=== PATIENT | female | born 1980 | race Caucasian/White ===

== ENCOUNTER 2019-09-28 02:58 | Inpatient (IN) | payer OTHER ==
[~2019-09-28] VITALS: Ht 152.4 cm; Wt 48.4 kg
[~2019-09-28 02:58] MED LIST: ATIVAN 0.50.5 MG/TAB PO; DILANTIN 100MG100 MG PO; DILANTIN 50MG C50 MG PO; FIORICET 325 MG1 TA1 PO; FOLIC ACID 11 MG/TA1 PO; PERCOCET 325 MG1 TA2 PO; PRENATAL1 TA1 PO; PROVENTIL0.09 MG/A1 IH; TYLENOL 325MG325 MG PO; TYLENOL 500MG500 MG PO; ULTRAM 50MG TAB50 MG PO; VALIUM 5MG T5 MG/TAB; XANAX 1MG1 MG
[2019-09-28 04:43] VITALS: BP 140/94; PULSE 92; TEMP 97.9
--- NOTE | 2019-09-28 05:00 | NUR ---
PT ARRIVED IN UNIT VIA STRETCHER ESORTED BY EMS. PT VERY LETHARGIC AND WAKES UP BRIEFTLY BUT FALLS BACK TO SLEEP RIGHT AWAY. INITIAL VS STABLE AND ALL WNL. SEIZURE PAD PLACED, BED ALARM ON.
[2019-09-28 06:14] LABS: BASO # 0.1 (0.0-0.2); BASO % 0.8 % (0.0-2.0); EOS # 0.3 (0.0-0.7); EOS % 3.5 % (0-4.0); GRAN # 5.2 (1.4-6.5); GRAN % 60.7 % (42.2-75.2); HEMATOCRIT 33.2 % (37.0-47.0); HEMOGLOBIN 10.6 g/dl (12.5-16.0); LYMPH % 22.9 % (20.0-51.0); MEAN CELL VOLUME 94 fl (80.0-100.0); MEAN CORPUSCULAR HEMOGLOBIN 30 pg (27.0-31.0); MEAN CORPUSCULAR HGB CONC 32 g/dl (33.0-37.0); MEAN PLATELET VOLUME 9.4 fl (7.4-10.4); MONO % 11.8 % (1.7-9.3); PLATELET COUNT 348 K/mm3 (130-400); RED BLOOD COUNT 3.53 M/mm3 (4.10-5.30); REDCELL DISTRIBUTION WIDTH-CV 14.9 % (11.5-14.5)
[2019-09-28] MEDS ORDERED: FLEXERIL 1010 MG/TAB PO (06:19)
[2019-09-28] MEDS ORDERED: KEPPRA1000 MG PO (06:20)
[2019-09-28] MEDS ORDERED: REMERON 15M15 MG/TA1 PO (06:21)
[2019-09-28] MEDS ORDERED: MULTI VITAMINS1 TAB PO (06:22)
--- NOTE | 2019-09-28 06:24 | NUR ---
ADMISSION DATA UNABLE TO COMPLETE FULLY PT LETHARGIC, DATA GATHERED FROM AND DISCHARGED PAPERS FROM [facility]. INFECTIOUS DISEASE SCREENING, SUICIDE RISK AND FAMILY HISTORY NOT DONE. WILL RELAY TO ONCOMING DAY SHIFT RN.
[2019-09-28 06:28] LABS: CALCIUM 9.5 mg/dL (8.4-10.2); CREATININE, serum 0.43 (0.52-1.25); POTASSIUM 4.1 mmol/L (3.4-5.0)
--- NOTE | 2019-09-28 06:40 | NUR ---
0300 - RECEIVED REPORT FROM DASH BENITEZ OF [facility]. 0430 - PT ARRIVED IN UNIT ESCORTED BY EMS. PT LETHARGIC, VSS. 0505 - ASHLY NURSE CALLED AND UPDATED BY THIS RN REGARDING PT. 0520 - THIS RN CALLED PT'S EL[facility]IRA AND MADE AWARE OF PT'S ARRIVAL AT THE FACILITY. PT IS ALSO A FULL CODE CONFIRMED BY . 0530 - DR. ANGEL NOTIFIED OT PT'S ARRIVAL, ORDERS GIVEN. SEE ORDERS FOR DETAILS. NO DVT PROPHYLAXIS ORDERD AT THIS TIME BUT WAS MENTIONED TO MD WELL.
--- NOTE | 2019-09-28 07:32 | NUR ---
Report received from Keesha BOWLING and care resumed.
[2019-09-28 08:00] VITALS: BP 94/74; PULSE 84
--- NOTE | 2019-09-28 10:03 | NUR ---
Dr Hylton in to see pt at this time.
[2019-09-28 12:00] VITALS: BP 95/56; PULSE 85
--- NOTE | 2019-09-28 13:09 | NUR ---
[employer] Sales Engineer contacted patient's , Nick (ph#[phone]) to discuss discharge planning as patient is not alert and oriented at this time. Nick reports he and patient live in [place]. Nick states their son, Gato and aunt, Andressa also live with them. Patient sees Dr. Membreno at [facility] in [place] for primary care. Patient also obtains medications from [facility]. Patient does not have Advance Directives. Nick reports patient sometimes uses a walker. Nick reports normally patient is independent but due to her addiction, she sometimes needs assistance with ADLS. Nick reports that sometimes he and Aunt Andressa sometimes even have to carry her. Nick reports patient has a significant family history of mental health and substance abuse. Nick states that patient has struggled with addiction in the past but just found out that she is struggling again. Nick states patient hides her "stash" around the home. Nick states patient uses "illegal substances and opiods" and that they believe they found an extacy pill in the home after patient was admitted to hospital. Nick strongly feels patient needs rehab. JULIAN advised when patient is alert and oriented, resources and services can be reviewed with patient. Nick states patient needs to be "forced" to go to rehab and asked if patient could see psychiatry while she is in the hospital. JULIAN collaborated with RNJeanie about possible psych consult. JULIAN will continue to follow.
[2019-09-28 16:00] VITALS: BP 99/66; PULSE 60
--- NOTE | 2019-09-28 16:20 | NUR ---
Pt awake and talking at this time. Stated she is in the hospital but thought it was [facility] which is where she was originally taken. Denies any concerns at this time. Will continue to follow.
--- NOTE | 2019-09-28 18:58 | NUR ---
Report given to Gianni BOWLING and care transfered.
--- NOTE | 2019-09-28 19:05 | NUR ---
RECEIVED REPORT FROM DASH MENG. PT SLEEPING IN BED ON RA. VSS. CALL LIGHT WITHIN REACH.
[2019-09-28 20:00] VITALS: BP 98/65; PULSE 69; TEMP 98.5
--- NOTE | 2019-09-28 20:42 | NUR ---
REPORT GIVEN TO DASH ADAM ON MEDICAL FLOOR FOR TRASNFER TO 354.
--- NOTE | 2019-09-28 20:50 | NUR ---
To room 354 from ICU via wheelchair. Oriented to room/policy. Answering questions appropriately but very drowsy falling asleep in between questions and during assessment. Call light in reach/bed in low/alarm on. Will monitor.
[2019-09-29] VITALS (7 sets, daily range): BP systolic 104–118; BP diastolic 50–75; PULSE 62–89; TEMP 98–98.4
--- NOTE | 2019-09-29 03:24 | NUR ---
Has continued to sleep most of this shift. Is A&Ox3-answers questions appropriately but quickly falls asleep during assessment. Tele continues to show SR. VS remained stable. Has not tolerated much PO. Did take her Keppra and paxil fine with H2O. Denies questions/concerns. Call light in reach. WIll monitor.
[2019-09-29 07:03] LABS: BASO # 0.1 (0.0-0.2); EOS # 0.3 (0.0-0.7); EOS % 3.7 % (0-4.0); GRAN # 4.4 (1.4-6.5); GRAN % 61.8 % (42.2-75.2); HEMOGLOBIN 10.5 g/dl (12.5-16.0); LYMPH # 1.8 (1.2-3.4); MEAN CELL VOLUME 93 fl (80.0-100.0); MEAN CORPUSCULAR HEMOGLOBIN 30 pg (27.0-31.0); MEAN CORPUSCULAR HGB CONC 32 g/dl (33.0-37.0); MEAN PLATELET VOLUME 9.9 fl (7.4-10.4); MONO # 0.6 (0.1-0.6); MONO % 8.1 % (1.7-9.3); PLATELET COUNT 389 K/mm3 (130-400); RED BLOOD COUNT 3.55 M/mm3 (4.10-5.30); REDCELL DISTRIBUTION WIDTH-CV 14.7 % (11.5-14.5)
[2019-09-29 07:10] LABS: ALBUMIN 3.8 gm/dL (3.5-5.0); BILIRUBIN,TOTAL 0.4 mg/dL (0.0-1.0); CREATININE, serum 0.45 (0.52-1.25); MAGNESIUM 1.7 mg/dL (1.6-2.3); POTASSIUM 3.9 mmol/L (3.4-5.0); TOTAL PROTEIN 6.7 gm/dL (6.4-8.2)
--- NOTE | 2019-09-29 08:06 | NUR ---
PT AOX4. STEADY INDEPENDENT AMBULATION. REFUSED SCDs. refused bed alarms. denies vertigo, n/v, headache. reports pain to rt clavicle from previous fx.
--- NOTE | 2019-09-29 10:32 | NUR ---
SW attended clinical rounds with the team. After rounds SW met with the patient to discuss inpatient and outpatient drug treatment options. The patient would like to try outpatient treatment. SW provided list of outpatient and inpatient treatment facilities. The patient will try the [facility] in [place]. She will contact them herself. There are no additional needs at this time.
--- NOTE | 2019-09-29 19:22 | NUR ---
PATIENT RESTING IN BED DURING CHANGE OF SHIFT REPORT FROM DAY SHIFT NURSERAFAL. PATIENT UP INDEPENDENTLY IN ROOM WITH NO PROBLEMS.
--- NOTE | 2019-09-30 03:00 | NUR ---
PATIENT SLEEPING, DOES NOT AWAKEN WHEN DOOR TO ROOM IS OPENED BY STAFF. OBSERVED BREATHING NONLABORED AND EVEN.
[2019-09-30 04:22] VITALS: BP 105/70; PULSE 56; TEMP 98.6
--- NOTE | 2019-09-30 07:30 | NUR ---
PATIENT SLEEPING DURING CHANGE OF SHIFT REPORT GIVEN TO DAY SHIFT NURSEPETAR.
[2019-09-30 07:34] VITALS: BP 107/63; PULSE 55; TEMP 98.4
[2019-09-30 07:38] LABS: BASO # 0.1 (0.0-0.2); BASO % 0.6 % (0.0-2.0); EOS # 0.3 (0.0-0.7); EOS % 3.4 % (0-4.0); GRAN # 5.1 (1.4-6.5); GRAN % 63.7 % (42.2-75.2); HEMOGLOBIN 10.5 g/dl (12.5-16.0); LYMPH # 1.9 (1.2-3.4); LYMPH % 24.1 % (20.0-51.0); MEAN CELL VOLUME 93 fl (80.0-100.0); MEAN CORPUSCULAR HEMOGLOBIN 30 pg (27.0-31.0); MEAN CORPUSCULAR HGB CONC 32 g/dl (33.0-37.0); MEAN PLATELET VOLUME 9.7 fl (7.4-10.4); MONO # 0.6 (0.1-0.6); MONO % 7.9 % (1.7-9.3); PLATELET COUNT 380 K/mm3 (130-400); RED BLOOD COUNT 3.56 M/mm3 (4.10-5.30); REDCELL DISTRIBUTION WIDTH-CV 14.9 % (11.5-14.5)
[2019-09-30 07:39] LABS: HEMATOCRIT 33.1 % (37.0-47.0)
[2019-09-30 07:55] LABS: CALCIUM 8.9 mg/dL (8.4-10.2); CREATININE, serum 0.45 (0.52-1.25); POTASSIUM 3.6 mmol/L (3.4-5.0)
[2019-09-30] MEDS ORDERED: PAXIL 20MG20 MG PO (09:08)
[2019-09-30] MEDS ORDERED: KEPPRA1000 MG PO (09:08)
--- NOTE | 2019-09-30 09:15 | NUR ---
SW attended clinical rounds with the team. The patient is to tentatively discharge home today, 09/29. There are no additional needs at this time.
[2019-09-30 12:13] VITALS: BP 114/62; PULSE 57; TEMP 97.8
--- NOTE | 2019-09-30 17:38 | NUR ---
Patient is alert and oriented. on seizure precaution. clavicle pain at 5/10. discharge with new medication Paxil to be picked up at the pharmacy. Patient was advise to schedule a followup appointment with Neurosurgeon at [facility] and PCP. iv discontinued.
== END 2019-09-30 14:00 | disposition home or self-care (01) | DRG 896 ==
LOC: ICU 02:58 → MEDICAL 04:27
PROVIDERS: Internal Medicine; ADMIT Student in an Organized Health Care Education/Training Program
DX: F13.10 Sedative, hypnotic or anxiolytic abuse, uncomplicated (principal); G92 Toxic encephalopathy; G40.909 Epilepsy, unspecified, not intractable, without status epilepticus; G89.4 Chronic pain syndrome; F32.9 Major depressive disorder, single episode, unspecified; G43.909 Migraine, unspecified, not intractable, without status migrainosus; F19.14 Other psychoactive substance abuse with psychoactive substance-induced mood disorder; G47.00 Insomnia, unspecified; F12.10 Cannabis abuse, uncomplicated; Z88.6 Allergy status to analgesic agent; Z88.2 Allergy status to sulfonamides
CPT/HCPCS: 99223-AI; 99233-AI; 99239; A9585; J1953; J7030